=== PATIENT | female | born 1990 | race American Indian/Alaskan Native ===

== ENCOUNTER 2017-03-11 16:43 | Inpatient (IN) | payer MEDICAID ==
[2017-03-11 18:27] LABS: Basophils % (Auto) 0.3 % (0.0-1.8); Eosinophils % (Auto) 0.5 % (0.0-4.3); Hematocrit 31.2 % (30.3-42.9); Hemoglobin 9.5 gm/dl (10.1-14.3); Mean Corpuscular HGB Conc 30 % (30-34); Mean Corpuscular Hemoglobin 22 pg (28-32); Mean Corpuscular Volume 73 fl (79-97); Platelet Count 340 K/mm3 (140-440); Red Blood Count 4.29 M/mm3 (3.65-5.03); Red Cell Distribution Width 18.1 % (13.2-15.2); White Blood Count 12.2 K/mm3 (4.5-11.0)
[2017-03-11 18:54] LABS: Alanine Aminotransferase 29 units/L (7-56); Albumin 3.8 g/dL (3.9-5); Albumin/Globulin Ratio 1.2 %; Alkaline Phosphatase 115 units/L (35-129); Anion Gap 22 mmol/L; BUN/Creatinine Ratio 15; Blood Urea Nitrogen 9 mg/dL (7-17); Calcium 8.7 mg/dL (8.4-10.2); Carbon Dioxide 22 mmol/L (22-30); Chloride 100.8 mmol/L (98-107); Glucose 121 mg/dL (65-100); Lipase 13 units/L (13-60); Potassium 4.9 mmol/L (3.6-5.0); Sodium 140 mmol/L (137-145); Total Protein 6.9 g/dL (6.3-8.2)
[2017-03-11] MEDS ORDERED: SUBLIMAZE ONE ×2 (19:48→22:46)
[2017-03-11] MEDS ORDERED: SUBLIMAZE IV ONE ×2 (19:50→22:43)
[2017-03-11] MEDS ORDERED: ZOFRAN IV ONE (20:45)
[2017-03-11] MEDS ORDERED: MORPHINE ONE (20:46)
[2017-03-11] MEDS ORDERED: ZOFRAN ONE (20:46)
[2017-03-11] MEDS ORDERED: TORADOL ONE (20:50)
[2017-03-11] MEDS ORDERED: MORPHINE IV ONE (21:09)
[2017-03-11] MEDS ORDERED: TORADOL IV ONE (21:09)
--- NOTE | 2017-03-11 21:12 | Emergency Department Report ---
ED Female HPI - General Chief complaint: Abdominal Pain Stated complaint: CONSTIPATED Time Seen by Provider: 03/11/17 20:22 Source: family Mode of arrival: Ambulatory Limitations: No Limitations - History of Present Illness Initial comments: 26 YO FEMALE C/O FFECAL IMPACTION AND URINARY RETENTION. SHE HAD A C-SEC 9 DAYS AGO DONE AT [facility] BY DR UGALDE . [address] NOON TODAY, SHE BEGAN EXPERIENCING DEEP RECTAL PAIN AND WAS UNABLE TO URINATE. SHE HAS SEVERE PAIN I NTHE RECTUM AND VAGINA. NO FEVER OR CHILLS ORE NAUSE,VOMITING. PT C/O FECAL RETENTION,URINARY RETENTION AND VAGINAL PAIN MD Complaint: vaginal discharge, other (CONSTIPATION,URINARY RETENTION) -: Gradual, This afternoon Location: labia Severity: severe Severity scale (0 -10): 10 Quality: aching Improves with: none Worsens with: movement Are you Now?: No Associated Symptoms: vaginal discharge, abdominal pain - Related Data Sexually active: Yes Previous Rx's Medication Instructions Recorded Last Taken Type Promethazine [Phenergan] 25 mg PO Q6H PRN #14 tablet 07/18/14 Unknown Rx Allergies Allergy/AdvReac Type Severity Reaction Status Date / Time No Known Allergies Allergy Unverified 07/18/14 04:01 ED Review of Systems ROS: Stated complaint: CONSTIPATED Other details as noted in HPI Constitutional: denies: chills, fever Eyes: denies: eye pain, eye discharge, vision change ENT: denies: ear pain, throat pain Respiratory: denies: cough, shortness of breath, wheezing Cardiovascular: denies: chest pain, palpitations Endocrine: no symptoms reported Gastrointestinal: abdominal pain, constipation. denies: nausea, diarrhea Genitourinary: denies: urgency, dysuria, discharge Musculoskeletal: denies: back pain, joint swelling, arthralgia Skin: denies: rash, lesions Neurological: denies: headache, weakness, paresthesias Psychiatric: denies: anxiety, depression Hematological/Lymphatic: denies: easy bleeding, easy bruising ED Past Medical Hx - Past Medical History Previous Medical History?: Yes Additional medical history: HERPES SIMPLEX VIRUS-GENITAL - Surgical History Past Surgical History?: Yes Additional Surgical History: 03/03/17 - Social History Smoking Status: Never Smoker Substance Use Type: None - Medications Home Medications: Home Medications Medication Instructions Recorded Confirmed Last Taken Type Promethazine [Phenergan] 25 mg PO Q6H PRN #14 tablet 07/18/14 Unknown Rx ED Physical Exam - General Limitations: No Limitations General appearance: alert, in distress (SCREAMING IN PAIN) - Head Head exam: Present: atraumatic, normocephalic - Eye Eye exam: Present: normal appearance, EOMI - ENT ENT exam: Present: mucous membranes moist - Neck Neck exam: Present: normal inspection - Respiratory Respiratory exam: Present: normal lung sounds bilaterally. Absent: respiratory distress - Cardiovascular Cardiovascular Exam: Present: regular rate, normal rhythm. Absent: systolic murmur, diastolic murmur, rubs, gallop - GI/Abdominal GI/Abdominal exam: Present: soft (LARGE), distended, normal bowel sounds, other (SURGICAL SITE INTACT ON INFECTION) - Rectal Rectal exam: Present: fecal impaction, other (STOOL ) - External exam: Present: swelling, lesions (VESICULAR LESIONS, LARGE LABIAL SWELLING) Speculum exam: Present: vaginal discharge (PUS) - Extremities Exam Extremities exam: Present: normal inspection, full ROM - Back Exam Back exam: Present: normal inspection - Neurological Exam Neurological exam: Present: alert, oriented X3 - Psychiatric Psychiatric exam: Present: normal affect, normal mood - Skin Skin exam: Present: warm, dry, intact, normal color. Absent: rash ED Course Vital Signs 03/11/17 03/11/17 03/11/17 17:05 19:50 20:10 Temperature 99 F 99.1 F Pulse Rate 98 H 80 Respiratory 18 18 18 Rate Blood Pressure 116/74 Blood Pressure 118/67 [Right] O2 Sat by Pulse 96 98 Oximetry 03/11/17 03/11/17 03/11/17 20:19 20:45 20:55 Temperature Pulse Rate Respiratory 16 20 18 Rate Blood Pressure Blood Pressure [Right] O2 Sat by Pulse Oximetry 03/11/17 03/11/17 03/11/17 21:15 21:25 22:55 Temperature Pulse Rate Respiratory 16 16 16 Rate Blood Pressure Blood Pressure [Right] O2 Sat by Pulse Oximetry 03/11/17 03/12/17 23:25 02:54 Temperature Pulse Rate Respiratory 16 20 Rate Blood Pressure Blood Pressure [Right] O2 Sat by Pulse Oximetry - Reevaluation(s) Reevaluation #1: 03/11/17 22:44 PT HAS SOME RELIEF WITH VISCOUS LIDOCAINE APPLIED TO THE VAGINAL AREA. I WILL GIVE HER AN ENEMA TO RELIEVE HER CONSTIPATION ED Medical Decision Making - Lab Data Result diagrams: 03/11/17 18:04 03/11/17 18:04 Critical care attestation.: If time is entered above; I have spent that time in minutes in the direct care of this critically ill patient, excluding procedure time. ED Disposition Clinical Impression: Urinary retention Herpes genitalis Qualifiers: Herpes simplex infection site: vulvovaginitis Qualified Code(s): A60.04 - Herpesviral vulvovaginitis Constipation Qualifiers: Constipation type: unspecified constipation type Qualified Code(s): K59.00 - Constipation, unspecified Disposition: DC-09 OP ADMIT IP TO THIS HOSP Is pt being admited?: Yes Does the pt Need Aspirin: No Condition: Stable Instructions: Abdominal Pain (ED) Time of Disposition: 05:01 (DR KARINA SPENCER)
[2017-03-11 21:36] LABS: Bilirubin,Urine NEG (Negative); Blood,Urine NEG (Negative); Ketones,Urine NEG (Negative); Leukocyte Esterase,Urine NEG (Negative); Nitrite,Urine NEG (Negative); Protein,Urine <15 mg/dL mg/dL (Negative); Urobilinogen,Urine < 2.0 mg/dL (<2.0); WBC,Urine < 1.0 /HPF (0.0-6.0)
[2017-03-11] MEDS ORDERED: NACL ONE (21:36)
[2017-03-11 22:27] LABS: Magnesium 1.9 mg/dL (1.7-2.3); Phosphorous 3.4 mg/dL (2.5-4.5)
--- NOTE | 2017-03-11 22:50 | XRay Report ---
FINAL REPORT EXAM: XR Acute Abdomen Series CLINICAL INDICATIONS: CONSTIPATION FINDINGS: Frontal view of the chest was acquired as well as supine and erect views of the abdomen. The heart is normal in size. The lungs appear clear. Relatively little gas is seen in small bowel. No definite dilated small bowel seen. Air is seen within colon of normal caliber. The patient is on appear to be overtly constipated. CT may be considered if patient has persistent abdominal pain. IMPRESSION: NO ACTIVE DISEASE IN THE CHEST NO BOWEL OBSTRUCTION IS SEEN. THE PATIENT DOES NOT APPEAR TO BE OVERTLY CONSTIPATED
[2017-03-11] MEDS: ZOVIRAX 1,000 MG in NACL 0.9% 100 ML IV SCH (23:00)
--- NOTE | 2017-03-11 23:01 | Cat Scan Report ---
FINAL REPORT PROCEDURE: CT ABDOMEN PELVIS W CON TECHNIQUE: Computerized axial tomography of the abdomen and pelvis was performed after the IV injection of iodinated nonionic contrast. HISTORY: ABDOMINAL PAIN,URINARY RETENTION,FECAL RETENTION S COMPARISON: X-ray series today FINDINGS: Visualized lower thorax: No significant abnormality. Liver: Enlarged liver with diffuse fatty infiltration. Spleen: Normal size and attenuation. Gallbladder and biliary system: Heterogeneous gallbladder but nonspecific appears mildly distended Pancreas: Mild pancreatic duct prominence 3 millimeters. Adrenals: Normal. Kidneys: Normal. Delayed images corroborate patency of the renal collecting systems with contrast in the decompressed bladder GI tract: No oral contrast. Moderate stool volume of the large bowel. Dilated loops of small bowel in the central lower abdomen upper pelvis and left upper abdomen in the 3.5 centimeter range with slight mucosal wall thickening. Extensive stool content with large fecal bulk in the rectal vault consistent with distal impaction. Findings overall suggest diffuse constipation with obstipation accentuated by the extensive fibroid uterus with mass effect on the bowel bladder. Recommend fecal evacuation with follow-up study including oral contrast to better evaluate and to exclude a small bowel obstruction as warranted. Lymph nodes and mesentery: Normal. Vasculature: Normal. Bladder: Botello balloon catheter in the decompressed bladder which contains some air-fluid level. Reproductive organs: Very large heterogeneous uterus with peripheral vascularity measuring in the 10 x 14 by 17 centimeter range. Consider underlying fibroid disease. Underlying additional mass pathology such as malignancy not excludable. Corkscrew vascularity favors multiple fibroids. Defer to ultrasound or MRI evaluation to better characterize. Delayed images do corroborate low attenuated probable endometrium versus cavitary fibroid process.. Peritoneum: No free fluid. Musculoskeletal structures: No significant abnormality. Other: None. IMPRESSION: Suspect extensive fibroid uterus Diffuse constipation with fecal impaction and resultant small bowel obstipation with bowel obstruction not excludable. Followup advised if warranted as detailed above.
[2017-03-12] MEDS ORDERED: DULCOLAX PR ONE (00:48)
[2017-03-12] MEDS ORDERED: SUBLIMAZE ONE (02:41)
[2017-03-12] MEDS ORDERED: SUBLIMAZE IV ONE (02:44)
--- NOTE | 2017-03-12 04:00 | Cat Scan Report ---
FINAL REPORT EXAM: CT ABDOMEN PELVIS WO CON HISTORY: ABD PAIN TECHNIQUE: Routine axial imaging was obtained of the abdomen and pelvis with oral contrast. No additional IV contrast was administered. Sagittal and coronal reconstructions were reviewed. Comparison is made to the study of 03/11/2017. FINDINGS: The lung bases do not show any localized infiltrates or effusions. The liver, gallbladder, pancreas, spleen, and adrenal glands appear normal. The kidneys are normal size and reveal residual excreted contrast in the collecting structures. There is no evidence of hydronephrosis. There is still a large amount of retained feces in the colon, particularly in the rectum. There is no evidence of small-bowel obstruction at this time. The small bowel loops are normal in caliber. There is no evidence of mucosal edema. The appendix is not enlarged. There is no evidence of free fluid or adenopathy. In the pelvis there is a Botello catheter in the bladder. The uterus is diffusely enlarged possibly related to fibroids. The surrounding bones and soft tissues otherwise reveal reticulation of the subcutaneous fat over the lower anterior abdominal wall. Cellulitis cannot be excluded. The skeletal structures appear well maintained IMPRESSION: Large amount retained feces in the colon noted. No evidence of small-bowel obstruction or enteritis. Enlarged fibroid uterus. Reticulation of the subcutaneous fat overlying the anterior abdominal wall extending into the pelvis. Underlying cellulitis cannot be excluded.
[2017-03-12] MEDS ORDERED: PERCOCET 5/325 PO PRN (05:21)
[2017-03-12] MEDS ORDERED: TORADOL IV PRN (05:21)
[2017-03-12] MEDS ORDERED: NARCAN 0.4 MG/1 ML IV PRN (05:21)
[2017-03-12] MEDS ORDERED: D5LR 1,000 ML IV SCH (06:00)
[2017-03-12] MEDS ORDERED: SODIUM CHLORIDE FLUSH SYRINGE 10 ML IV PRN (06:00)
[2017-03-12] MEDS ORDERED: GOLYTELY PO ONE (10:00)
[2017-03-12] MEDS: ZOVIRAX 1,000 MG in NACL 0.9% 100 ML IV SCH (10:38)
[2017-03-12] MEDS ORDERED: Fluarix Quad 2017-2018(36 MOS+ IM ONE (12:00)
[2017-03-12] MEDS ORDERED: GLYCERIN ADULT 2 GM PR PRN (14:05)
--- NOTE | 2017-03-12 17:22 | History and Physical Report ---
History of Present Illness Date of examination: 03/12/17 Date of admission: 03/12/17 05:01 Chief complaint: constipation, urethral obstruction; possible herpes outbreak History of present illness: Pt is a 26 year old s/p primary section on 03/03/17 secondary to breech presentation who presents from the ED with severe constipation, urethral obstruction, and abdominal pain. She reports that she was taking Motrin and Percocet 10s for her postoperative pain but was not taking a stool softner. She had a bowel movement at the hospital prior to discharge and has had no nausea. She reports having a postoperative appt on 03/11/17 where she was told that everything was going well. Pt then reports that she was unable to pass a large stool and she pushed so hard that she began to have swelling of the vulva and rectum( She tried an enema at home with little relief). She also experienced urinary obstruction because of the large stool. She called EMS and was brought to [facility] for evaluation. Since admission, she has been given laxatives has had 3 large bowel movements. Past History Past Medical History: other Past Surgical History: section PLUMBING MANAGER History: fibroids, herpes Social history: no significant social history Medications and Allergies Allergies Allergy/AdvReac Type Severity Reaction Status Date / Time No Known Allergies Allergy Unverified 07/18/14 04:01 Home Medications Medication Instructions Recorded Confirmed Last Taken Type Promethazine [Phenergan] 25 mg PO Q6H PRN #14 tablet 07/18/14 03/12/17 Unknown Rx Active Meds: Active Medications Docusate Sodium (Colace) 100 mg PO BID МАРИЯ Glycerin (Glycerin Adult 2 Gm) 1 supp WA QDAY PRN PRN Reason: Constipation Acyclovir 1,000 mg/ Sodium (Chloride) 120 mls @ 100 mls/hr IV Q8HR МАРИЯ PRN Reason: Protocol Last Admin: 03/12/17 10:38 Dose: 100 mls/hr Dextrose/Lactated Ringer's (D5lr) 1,000 mls @ 125 mls/hr IV DIRECT МАРИЯ Last Admin: 03/12/17 06:14 Dose: 125 mls/hr Ketorolac Tromethamine (Toradol) 30 mg IV Q6H PRN PRN Reason: Pain, Moderate (4-6) Stop: 03/17/17 05:20 Last Admin: 03/12/17 11:24 Dose: 30 mg Naloxone HCl (Narcan 0.4 Mg/1 Ml) 0.1 mg IV Q2MIN PRN PRN Reason: Res Rate </= 8 or 02 SAT < 92% Oxycodone/Acetaminophen (Percocet 5/325) 1 tab PO Q6H PRN PRN Reason: Pain, Moderate (4-6) Sodium Chloride (Sodium Chloride Flush Syringe 10 Ml) 10 ml IV PRN PRN PRN Reason: LINE FLUSH Review of Systems All systems: negative - Vital Signs Vital signs: Vital Signs Temp Pulse Resp BP Pulse Ox 99 F 98 H 18 116/74 96 03/11/17 17:05 03/11/17 17:05 03/11/17 17:05 03/11/17 17:05 03/11/17 17:05 Temp Pulse Resp BP Pulse Ox 98.1 F 67 18 109/67 97 03/12/17 12:00 03/12/17 12:00 03/12/17 12:00 03/12/17 12:00 03/12/17 12:00 - Physical Exam Breasts: Positive: deferred Cardiovascular: Regular rate Abdomen: Positive: soft, distention (severely), tenderness, abnormal bowel sounds (hyperactive ) Uterus: Positive: enlarged Extremities: Positive: edema Results Result Diagrams: 03/11/17 18:04 03/11/17 18:04 Abnormal lab results 03/11/17 03/11/17 03/11/17 Range/Units 18:04 18:04 21:14 WBC 12.2 H (4.5-11.0) K/mm3 Hgb 9.5 L (10.1-14.3) gm/dl MCV 73 L (79-97) fl MCH 22 L (28-32) pg RDW 18.1 H (13.2-15.2) % Lymph % (Auto) 8.2 L (13.4-35.0) % Lymph # 1.0 L (1.2-5.4) K/mm3 Seg Neutrophils % 84.3 H (40.0-70.0) % Seg Neutrophils # 10.3 H (1.8-7.7) K/mm3 Creatinine 0.6 L (0.7-1.2) mg/dL Glucose 121 H (65-100) mg/dL Albumin 3.8 L (3.9-5) g/dL Urine pH 8.0 H (5.0-7.0) All other labs normal. Assessment and Plan A: s/p section at [facility] on 03/03/17 Severe Constipation Urinary Obstruction Questionable herpes outbreak Abdominal Pain P: Admit to PLUMBING MANAGER service. Continue laxative regimen. Vulvar edema resolved; no discrete lesions suggestive of genital herpes. Discontinue acyclovir presently. Botello catheter. Attempt voiding trial tomorrow.
[2017-03-12] MEDS: COLACE PO SCH ×3 (17:39→22:07)
[2017-03-12] MEDS ORDERED: MOTRIN PO PRN (23:20)
[2017-03-13 09:04] VITALS: BP 123/90
--- NOTE | 2017-03-13 10:19 | Progress Note ---
Assessment and Plan A: s/p section at [facility] on 03/03/17 Severe Constipation- much improved Urinary Obstruction- hernadez just removed Vulvar edema resolved P:Voiding trial Pt may be discharged once she voids with follow up with her Merchandise Team Manager within one week. Subjective - Subjective Date of service: 03/13/17 Principal diagnosis: Constipation, urinary obstruction after sectrion 03/03/17 Interval history: Pt feels much better today. She has had multiple bowel movements since yesterday and now has watery stools. Her hernadez was just removed. Tolerating regular diet Patient reports: appetite normal, pain well controlled, ambulating normally, no voiding normally (hernadez just removed ), no nauseated Objective - Vital Signs Latest vital signs: Vital Signs Temp Pulse Resp BP Pulse Ox 03/13/17 08:00 98.7 F 87 18 123/90 97 03/13/17 04:00 99.0 F 79 20 113/62 03/13/17 00:00 98 F 86 18 116/72 03/12/17 20:00 99 F 95 H 20 116/69 96 03/12/17 17:00 99.0 F 91 H 18 108/54 97 03/12/17 12:00 98.1 F 67 18 109/67 97 Intake and Output 03/12/17 03/13/17 03/13/17 22:59 06:59 14:59 Intake Total 480 Output Total 650 Balance -650 480 Intake: Oral 360 Intake, Free Water 120 Output: Urine 650 Indwelling Catheter 650 Other: Intake, Other Source Saline Solution Total, Intake Amount 360 Total, Output Amount 650 Voiding Method Toilet # Voids 1 Indwelling Catheter 1 # Bowel Movements 1 - Exam Breasts: Present: deferred Cardiovascular: Present: Regular rate Lungs: Present: Clear to auscultation Abdomen: Present: soft (mild, soft), normal bowel sounds Extremities: Present: normal Incision: Present: intact (some granulation tissue present )
--- NOTE | 2017-03-13 10:19 | Event Note ---
Date: 03/13/17 On-call MD notified by RN that pt has voided. Plan to discharge home.
--- NOTE | 2017-03-13 10:23 | Discharge Summary ---
Providers - Providers Date of Admission: 03/12/17 05:01 Date of discharge: 03/13/17 Attending physician: KARINA FLANAGAN Primary care physician: ARIANNE RHODES Hospitalization Reason for admission: other (Consitpation, urinary retention, vulvar edema ) Discharge diagnosis: other Hospital course: Pt was admitted for medical management of severe constipation, urinary retention and vulvar edema after section on 03/03/17 at another facility. She received multiple laxatives which ultimately relieved her constipation. A hernadez was placed on admission, but she was able to void prior to discharge. She is tolerating a regular diet without nausea or vomiting. She met discharge criteria on HD#1 and she will follow up with her Molasses Coloring Operator within one week. Condition at discharge: Stable Disposition: TO HOME OR SELFCARE - Discharge Diagnoses (1) Fibroid uterus Status: Acute (2) Constipation Status: Acute Qualifiers: Constipation type: unspecified constipation type Qualified Code(s): K59.00 - Constipation, unspecified (3) H/O section Status: Acute (4) Obesity Status: Acute Qualifiers: Obesity type: unspecified obesity type Serious obesity comorbidity presence : unspecified whether serious comorbidity present Body mass index: BMI 36.0- 36.9 (5) Urinary retention Status: Resolved Plan - Discharge Medications Prescriptions: Docusate Sodium [Colace] 100 mg PO BID PRN #60 capsule PRN Reason: Constipation - Provider Discharge Summary Activity: routine Diet: routine Instructions: routine Additional instructions: [] Smoking cessation referral if applicable(refer to patient education folder for contact #) [] Refer to [facility]'s [facility] Booklet Call your doctor immediately for: * Fever > 100.5 * Heavy vaginal bleeding ( >1 pad per hour) * Severe persistent headache * Shortness of breath * Reddened, hot, painful area to leg or breast * Drainage or odor from incision. * Keep incision clean and dry at all times and follow doctor's instructions regarding bathing/showering PLEASE FOLLOW UP WITH YOUR CHIEF ENGINEER'S HELPER WITHIN ONE WEEK - Follow up plan Follow up: ARIANNE RHODES MD [Primary Care Provider] - 3-5 Days
== END 2017-03-13 11:05 | disposition home or self-care (01) | DRG 776 ==
LOC: ED 16:43 → OB 03-12 05:01
PROVIDERS: ADMIT Obstetrics & Gynecology; ATTEND Obstetrics & Gynecology
PROC: 3E0234Z Introduction of Serum, Toxoid and Vaccine into Muscle, Percutaneous Approach (ICD-10-PCS; principal; 2017-03-12)
DX: O90.89 Other complications of the puerperium, not elsewhere classified (principal); O99.215 Obesity complicating the puerperium; A60.00 Herpesviral infection of urogenital system, unspecified; R33.9 Retention of urine, unspecified; K59.00 Constipation, unspecified; D25.9 Leiomyoma of uterus, unspecified; E66.9 Obesity, unspecified; N13.9 Obstructive and reflux uropathy, unspecified; Z23 Encounter for immunization; Z68.36 Body mass index [BMI] 36.0-36.9, adult
CPT/HCPCS: 36415; 51702; 74022; 74176; 74177; 80053; 81001; 83690; 83735; 84100; 85025; 90686; 96374; 96375; 96376; J0133; J1885; J2270; J2405; J3010; J7121; Q9967